=== PATIENT | male | born 1965 | race Caucasian/White ===

== ENCOUNTER 2016-04-10 08:25 | Day surgery (SDC) | payer MEDICAID ==
[~2016-04-10 08:25] MED LIST: ACETAMINOPHEN 1000MG/100 ML PREMIX IV ONE; CEFOTETAN DISODIUM 1 G in 0.9 % SODIUM CHLORIDE 100ML 100 ML IVPB ONE; FAMOTIDINE 20MG TABLET PO ONE; MECLIZINE 25 MG TABLET PO ONE; METOCLOPRAMIDE 10 MG TABLET PO ONE
[2016-04-10] MEDS ORDERED: BUPIVACAINE 0.25% W/EPI MPF 30ML VIAL IVP ONE (14:02)
[2016-04-10] MEDS ORDERED: HYDROCODONE/APAP 5/325MG TABLET PO ONE (14:02)
[2016-04-10] MEDS ORDERED: KETOROLAC 30 MG/ML VIAL IVP ONE (15:16)
[2016-04-10] MEDS ORDERED: GLYCOPYRROLATE 0.2 MG/ML ML IV ONE (15:16)
[2016-04-10] MEDS ORDERED: SUCCINYLCHOLINE 20 MG/ML 10ML IVP ONE (15:16)
[2016-04-10] MEDS ORDERED: ROCURONIUM BROMIDE 50MG/5ML VIAL IV ONE (15:16)
[2016-04-10] MEDS ORDERED: FENTANYL PF 100MCG/2ML VIAL IV ONE (15:16)
[2016-04-10] MEDS ORDERED: SEVOFLURANE 250 ML INH ONE (15:16)
[2016-04-10] MEDS ORDERED: LIDOCAINE 2% MDV (20MG/ML) 20ML VIAL IV ONE (15:16)
[2016-04-10] MEDS ORDERED: NEOSTIGMINE 1 MG/1 ML,10ML VIAL IV ONE (15:16)
[2016-04-10] MEDS ORDERED: PROPOFOL 10 MG/ML VIAL IV ONE (15:16)
--- NOTE | 2016-04-12 14:43 | Operative Note ---
OPERATIVE REPORT DATE OF PROCEDURE: 04/10/2016. SURGEON: José Manuel Isidro D.O. REFERRING PHYSICIAN: NIKITA Gonzales PREOPERATIVE DIAGNOSIS: RUPTURED APPENDIX. POSTOPERATIVE DIAGNOSIS: RUPTURED APPENDIX. PROCEDURE: Interval appendectomy. INDICATIONS: The patient is a 51-year-old male who suffered a ruptured appendix. He underwent percutaneous drainage of an abscess and comes in for a definitive appendectomy. The risks, benefits, and alternatives were discussed. The risks include bleeding, infection, postoperative abscess formation, injury to genitourinary structures. He understood this fully. Repeat imaging did reveal a bit of ongoing right lower quadrant inflammation with two small microabscess cavities. Therefore consent was signed and questions were answered. DESCRIPTION OF PROCEDURE: He was taken to the operating room and was placed in the supine position. General anesthesia was administered per the Department of Anesthesia. The patient's left arm was tucked to the side. Her abdomen was prepped and draped in the usual fashion. Adequate time out was performed. He had voided preoperatively. He did also receive a preoperative second- generation cephalosporin. At this time the supraumbilical region was anesthetized with a total of 2.0 mL of 0.25% Sensorcaine with epinephrine. A 1.0-cm incision was made. This was carried down to the anterior rectus fascia. This was incised. Ney clamps were placed and the fascial edges were brought up into the wound. Stay sutures of 0 Vicryl were placed. The posterior rectus sheath was identified and incised. The peritoneal cavity was entered bluntly. At this time a 10-mm blunt Powell port was placed, and adequate pneumoperitoneum was established. Under direct visualization, an additional 5.0-mm right subcostal and a 5.0-mm suprapubic port were placed. There were dense inflammatory changes in the right lower quadrant. The omentum was draped over the terminal ileum, cecum, and what looks like the tip of the appendix. The omentum was swept medially, exposing the tip of the appendix. This was then lifted anteriorly. The mesoappendix was taken down serially with the Toi Harmonic. There were two abscess cavities which were encountered. They were quite small, and both contained faecoliths. These were both suctioned free. At this time, the base of the appendix was transected with the Endo BIRGIT stapling device. This was placed in an Endo Catch bag and brought out infraumbilically. The right lower quadrant was rechecked and was found to be hemostatic. We did irrigate and clean up the two microabscess cavities. There was no bowel injury. We did transect the appendix right at the level of the cecum. There were really no other abnormalities. At this time pneumoperitoneum was released. All ports were removed. The fascia was closed with 0 Vicryl in a [id number] fashion. The skin and all three ports were closed with 4-0 Vicryl. He was taken to the recovery room in satisfactory condition. FINDINGS AT THE TIME OF SURGERY: Interval appendectomy for ruptured appendix status post drain placement. José Manuel Isidro D.O. Date Time JOB NUMBER: [id number] cc: NIKITA Gonzales
== END 2016-04-10 12:25 | disposition home or self-care (01) ==
LOC: SUR 08:25
PROVIDERS: ATTEND Surgery
DX: K35.3 Acute appendicitis with localized peritonitis (principal); F17.200 Nicotine dependence, unspecified, uncomplicated
CPT/HCPCS: 44960; 00840; J1885; J3010; J0330; J2710